=== PATIENT | male | born 1995 | race Caucasian/White ===

== ENCOUNTER 2023-09-12 20:35 | Emergency (ER) | payer MEDICAID ==
[~2023-09-12] VITALS: Ht 185.4 cm; Wt 78.6 kg
[2023-09-12 21:18] LABS: BASOPHILS % (AUTO) 0.6 % (0-1); EOSINOPHILS # (AUTO) 0.3 X10'3 (0-0.9); EOSINOPHILS % (AUTO) 3.3 % (0-6); HEMATOCRIT 43.2 % (42.0-52.0); HEMOGLOBIN 14.5 g/dl (14.0-17.9); LYMPHOCYTES # (AUTO) 3.7 X10'3 (1.1-4.8); LYMPHOCYTES % (AUTO) 44.9 % (21-51); MEAN CORPUSCULAR HEMOGLOBIN 29.8 PG (27.0-31.0); MEAN CORPUSCULAR HGB CONC 33.5 g/dL (33.0-36.5); MEAN CORPUSCULAR VOLUME 88.8 FL (78-98); MEAN PLATELET VOLUME 8.2 FL (7.4-10.4); MONOCYTES # (AUTO) 0.6 X10'3 (0-0.9); MONOCYTES % (AUTO) 7.1 % (2-12); NEUTROPHILS # (AUTO) 3.6 X10'3 (1.8-7.7); NEUTROPHILS % (AUTO) 44.1 % (42-75); PLATELET COUNT 211 X10'3 (140-440); RED BLOOD COUNT 4.86 X10'6 (4.70-6.10); RED CELL DISTRIBUTION WIDTH 13.2 % (11.5-14.5); WHITE BLOOD COUNT 8.3 X10'3 (4.5-11.0)
[2023-09-12 21:25] LABS: ALANINE AMINOTRANSFERASE 44 U/L (12-78); ALBUMIN 4.2 G/DL (3.4-5.0); ALBUMIN/GLOBULIN RATIO 1.4 (1.1-1.5); ALKALINE PHOSPHATASE 52 IU/L (46-116); ANION GAP 8 (8-16); ASPARTATE AMINO TRANSFERASE 29 U/L (10-37); BILIRUBIN,TOTAL 0.2 MG/DL (0.1-1.0); BLOOD UREA NITROGEN 16 MG/DL (7-18); BUN/CREATININE RATIO 15.7 (10.0-20.0); CALCIUM 9.2 MG/DL (8.5-10.1); CHLORIDE 103 MMOL/L (99-107); CREATININE 1.02 MG/DL (0.60-1.10); GLUCOSE 93 MG/DL (70-104); LIPASE 58 U/L (16-77); POTASSIUM 3.6 MMOL/L (3.5-5.1); SODIUM 137 MMOL/L (135-145); TOTAL CARBON DIOXIDE 25.7 MMOL/L (24-32); TOTAL PROTEIN 7.3 G/DL (6.4-8.2); eCRCL 119 ML/MIN; eGFR 86 ML/MIN
[2023-09-12] MEDS ORDERED: LIDOcaine Viscous 15ml cup MM ONE (22:20)
[2023-09-12] MEDS ORDERED: mag hydrox/Alum hydrox/simeth 30ml oral suspension PO ONE (22:20)
[2023-09-12 22:35] VITALS: RESP 18
[2023-09-12] MEDS ORDERED: SUCR1TAB PO (22:44)
[2023-09-12] MEDS ORDERED: OMEP40CA21 PO (22:44)
[2023-09-13 00:18] VITALS: BP 14/117; PULSE 79; TEMP 98.7; O2SAT 74
[2023-09-13 00:22] LABS: BILIRUBIN,URINE NEGATIVE (Neg); CLARITY,URINE CLEAR (Clear); COLOR,URINE YELLOW (Yellow); GLUCOSE, URINE NEGATIVE (Neg); KETONES,URINE NEGATIVE (Neg); LEUKOCYTE ESTERASE ,URINE NEGATIVE (Neg); NITRITES, URINE NEGATIVE (Neg); OCCULT BLOOD,URINE NEGATIVE (Neg); PH,URINE 6.5 (4.8-8.0); PROTEIN,URINE NEGATIVE (Neg); UROBILINOGEN,URINE 0.2 E.U/dL (0.2-1.0)
[2023-09-13 00:29] LABS: UA COLLECTION TYPE URINAL
== END 2023-09-13 00:21 | disposition home or self-care (01) ==
LOC: ER 20:36
DX: R10.13 Epigastric pain (principal); R11.0 Nausea; F17.210 Nicotine dependence, cigarettes, uncomplicated; Z79.899 Other long term (current) drug therapy
CPT/HCPCS: 36415; 74176; 80053; 81003; 83690; 85025; 99284; 99285

== ENCOUNTER 2023-12-29 21:26 | Emergency (ER) | payer MEDICAID ==
[~2023-12-29] VITALS: Ht 185.4 cm; Wt 77.3 kg
[~2023-12-29 21:26] MED LIST: SUCR1TAB PO
[2023-12-29 21:34] VITALS: TEMP 98.1
[2023-12-29] MEDS ORDERED: NEOM1OIN8 TOP (22:26)
[2023-12-29] MEDS ORDERED: CEPH-585 PO (22:26)
[2023-12-29] MEDS ORDERED: DOXY-457 PO (22:26)
[2023-12-29] MEDS: DOXYCYCLINE 100MG CAPSULE PO STA (22:39)
[2023-12-29] MEDS: cephalexin 250mg capsule PO ONE (22:40)
[2023-12-29] MEDS: acetaminophen 325mg tablet PO ONE (22:41)
[2023-12-29] MEDS: ibuprofen tablet 400 MG TABLET PO ONE (22:41)
[2023-12-29] MEDS: ondansetron 4mg rapidly disintigrating tab PO ONE (22:42)
[2023-12-29] MEDS: bacitracin 15gm ointment TP ONE (22:42)
[2023-12-29] MEDS: TETanus/Pertussis (Acell)/Diphther VAC/PF (Tdap-Adult) 0.5ml syringe IMVAC ONE (22:45)
[2023-12-29 22:52] VITALS: BP 130/85; PULSE 81; RESP 18; O2SAT 96
== END 2023-12-29 22:55 | disposition home or self-care (01) ==
LOC: ER 21:27
DX: L03.115 Cellulitis of right lower limb (principal); L02.415 Cutaneous abscess of right lower limb; Z79.899 Other long term (current) drug therapy
CPT/HCPCS: 90471; 90715; 99284